=== PATIENT | male | born 1970 | race African-American/Black ===

== ENCOUNTER 2019-03-18 10:07 | Emergency (ER) | payer SELFPAY ==
[~2019-03-18] VITALS: Ht 185.4 cm; Wt 86.2 kg
--- NOTE | 2019-03-18 10:18 | NUR ---
BIB W C/O DIZZINESS AND LIGHTHEADEDNESS SINCE YESTERDAY. TO ER BED 11, HOOKED TO MONITOR, AOx4, BREATHING EVEN AND UNLABORED. PROVIDED W WARM BLANKET, KEPT COMFORTABLE AND SAFE, AWAITING MD SCOTT.
--- NOTE | 2019-03-18 10:25 | NUR ---
AYAH FERNANDEZ AT BEDSIDE
[2019-03-18] MEDS ORDERED: ONDANSETRON HCL/PF 4 MG/2 ML VIAL IVP ONE (10:30)
[2019-03-18] MEDS ORDERED: MECLIZINE HCL 12.5 MG TABLET PO ONE (10:30)
[2019-03-18] MEDS ORDERED: IV NS 0.9% 1,000 ML BAG IV ONE (10:30)
[2019-03-18 10:47] LABS: BASOPHILS % (AUTO) 0.5 % (0.0-2.0); EOSINOPHILS % (AUTO) 0.7 % (0.0-6.0); HEMATOCRIT 49 % (39-51); HEMOGLOBIN 16.3 g/dL (13.5-17.5); LYMPHOCYTES # (AUTO) 1.4 /CMM (0.8-4.8); LYMPHOCYTES % (AUTO) 33.2 % (20.0-44.0); MEAN CORPUSCULAR HGB CONC 33 g/dl (31.0-36.0); MEAN CORPUSCULAR VOLUME 91 fL (80-96); MONOCYTES # (AUTO) 0.5 /CMM (0.1-1.30); MONOCYTES % (AUTO) 10.6 % (2.0-12.0); NEUTROPHILS # (AUTO) 2.4 /CMM (1.8-8.9); PLATELET COUNT (AUTO) 204 /CMM (150-450); RED BLOOD CELL COUNT(AUTO) 5.44 MIL/uL (4.5-6.0); WHITE BLOOD COUNT (AUTO) 4.3 K/uL (4.3-11.0)
[2019-03-18] MEDS ORDERED: MECLIZINE HCL 25 MG TABLET ONE (10:48)
[2019-03-18] MEDS ORDERED: ONDANSETRON HCL/PF 4 MG/2 ML VIAL ONE (10:48)
[2019-03-18 10:54] LABS: CALCIUM, SERUM 9.4 mg/dL (8.5-10.1); CARBON DIOXIDE 31 mmol/L (21-32); CHLORIDE 104 mmol/L (98-107); CREATININE 1.1 mg/dL (0.6-1.3); GLUCOSE 73 mg/dL (74-106); POTASSIUM 4.8 mmol/L (3.5-5.1); SODIUM SERUM 138 mmol/L (136-145); UREA NITROGEN, BLOOD 15 mg/dL (7-18)
--- NOTE | 2019-03-18 10:57 | NUR ---
WHEELED OUT VIA RNEY FOR CT SCAN
[2019-03-18 11:00] LABS: ALANINE AMINOTRANSFERASE 33 U/L (12-78); ALBUMIN 3.7 g/dL (3.4-5.0); ALKALINE PHOSPHATASE 101 U/L (46-116); ASPARTATE AMINOTRANSFERASE 36 U/L (15-37); BILIRUBIN,DIRECT 0.1 mg/dL (0.0-0.2); BILIRUBIN,TOTAL 0.5 mg/dL (0.2-1.0); TOTAL PROTEIN, SERUM 7.6 g/dL (6.4-8.2)
[2019-03-18 12:34] VITALS: BP 146/96
--- NOTE | 2019-03-18 12:34 | NUR ---
IV removed. Catheter intact and site benign. Pressure and 4x4 applied to site. No bleeding noted.Patient discharged to home in stable condition. Written and verbal after care instructions given. Patient verbalizes understanding of instruction.
[2019-03-20] MEDS ORDERED: MECL-102 PO (16:59)
[2019-03-20] MEDS ORDERED: ONDA4TAB5 PO (16:59)
== END 2019-03-18 12:34 | disposition home or self-care (01) ==
LOC: ER 10:14
DX: R42 Dizziness and giddiness (principal); I10 Essential (primary) hypertension
CPT/HCPCS: 36415; 70450; 80048; 80076; 84484; 85025; 96361; 96374; 99284; J2405; J7030; J8597

== ENCOUNTER 2019-03-19 01:56 | Inpatient (IN) | payer SELFPAY ==
[~2019-03-19] VITALS: Ht 185.4 cm; Wt 86.3 kg
--- NOTE | 2019-03-19 02:26 | NUR ---
PT BIB TO ER WITH C/O OF DIZZINESS SINCE 209903/18/19. PATIENT HAS BEEN TO ER EARLIER TODAY FOR THE SAME COMPLAINT, BUT UNRESOLVED. AAOX4. PATIENT DESCRIBES HE "FEELS THE ROOM IS SPINNING". NO SOB. NOT IN ANY DISTRESS. CURRENTLY CONNECTED TO MONITOR.
[2019-03-19] MEDS ORDERED: ONDANSETRON HCL/PF 4 MG/2 ML VIAL IVP ONE (02:30)
[2019-03-19] MEDS ORDERED: IV NS 0.9% 1,000 ML BAG IV ONE (02:30)
--- NOTE | 2019-03-19 02:30 | NUR ---
BLOOD DRAWN AND SENT TO LAB.
[2019-03-19 02:36] LABS: BASOPHILS % (AUTO) 0.3 % (0.0-2.0); EOSINOPHILS % (AUTO) 0.1 % (0.0-6.0); HEMATOCRIT 48 % (39-51); LYMPHOCYTES # (AUTO) 1.8 /CMM (0.8-4.8); MEAN CORPUSCULAR HGB CONC 33 g/dl (31.0-36.0); MEAN CORPUSCULAR VOLUME 91 fL (80-96); MONOCYTES # (AUTO) 0.7 /CMM (0.1-1.30); MONOCYTES % (AUTO) 6.7 % (2.0-12.0); NEUTROPHILS # (AUTO) 7.8 /CMM (1.8-8.9); NEUTROPHILS % (AUTO) 75.9 % (43.0-81.0); PLATELET COUNT (AUTO) 208 /CMM (150-450); RED BLOOD CELL COUNT(AUTO) 5.32 MIL/uL (4.5-6.0); WHITE BLOOD COUNT (AUTO) 10.3 K/uL (4.3-11.0)
[2019-03-19] MEDS ORDERED: ONDANSETRON HCL/PF 4 MG/2 ML VIAL ONE (02:38)
[2019-03-19 02:50] LABS: ALANINE AMINOTRANSFERASE 44 U/L (12-78); ALBUMIN 3.7 g/dL (3.4-5.0); ALKALINE PHOSPHATASE 101 U/L (46-116); ASPARTATE AMINOTRANSFERASE 59 U/L (15-37); BILIRUBIN,DIRECT 0.1 mg/dL (0.0-0.2); BILIRUBIN,TOTAL 0.2 mg/dL (0.2-1.0); CALCIUM, SERUM 8.6 mg/dL (8.5-10.1); CARBON DIOXIDE 22 mmol/L (21-32); CHLORIDE 104 mmol/L (98-107); CREATININE 1.2 mg/dL (0.6-1.3); GLUCOSE 159 mg/dL (74-106); POTASSIUM 3.8 mmol/L (3.5-5.1); SODIUM SERUM 139 mmol/L (136-145); TOTAL PROTEIN, SERUM 7.5 g/dL (6.4-8.2); UREA NITROGEN, BLOOD 13 mg/dL (7-18)
--- NOTE | 2019-03-19 03:27 | NUR ---
[facility] [phone]
--- NOTE | 2019-03-19 03:46 | NUR ---
BED 323-1
--- NOTE | 2019-03-19 03:56 | NUR ---
REPORT GIVEN TO VANESSA SANTACRUZ FOR [facility].
--- NOTE | 2019-03-19 04:20 | NUR ---
TELE/RN NOTES RECEIVED PT. FROM ER VIA [facility]. PT. IS AWAKE, ALERT AND ORIENTED X3. BREATHING EVEN AND UNLABORED ON ROOM AIR. NO SOB, RESPIRATORY DISTRESS OR COMPLAINTS OF PAIN NOTED AT THIS TIME. PT. COMPLAINING OF FEELING DIZZY. ORIENTED PT. TO ROOM. PLACED EXTERNAL SLIP BRIDGE OPERATOR ON PT. CURRENT RHYTHM = SINUS RHYTHM HR 66. PT. WITH RIGHT AC 20 GAUGE IV SALINE LOCK PRESENT, PATENT AND INTACT. PT. REFUSING FULL BODY ASSESSMENT AT THIS TIME AND WANTS TO STAY IN STREET [facility]. BED LOCKED AND IN LOWEST POSITION, SIDE RAILS UP X3. WILL CONTINUE TO MONITOR.
[2019-03-19 04:30] VITALS: BP 145/95
[2019-03-19] MEDS ORDERED: ACETAMINOPHEN 325 MG TABLET PO PRN (04:30)
[2019-03-19] MEDS ORDERED: MAG HYDROX/AL HYDROX/SIMETH 30 ML UDC PO PRN (04:30)
[2019-03-19] MEDS ORDERED: MAGNESIUM HYDROXIDE 30 ML UDC PO PRN (04:30)
[2019-03-19] MEDS ORDERED: Z GUARD REMEDY 2 OZ OINT TP PRN (04:30)
[2019-03-19] MEDS ORDERED: IV NS 0.9% 1,000 ML IV ONE (04:30)
[2019-03-19] MEDS ORDERED: HYDROCODONE/APAP 5/325MG 1 EACH TABLET PO PRN (04:30)
[2019-03-19] MEDS ORDERED: ZOLPIDEM TARTRATE 5 MG TABLET PO PRN (04:30)
--- NOTE | 2019-03-19 06:25 | NUR ---
TELE/RN NOTES PT. IS LYING IN BED RESTING. BREATHING EVEN AND UNLABORED ON ROOM AIR. NO SOB, RESPIRATORY DISTRESS OR COMPLAINTS OF PAIN NOTED AT THIS TIME. PT. STATED THE DIZZY FEELING IS GOING AWAY AND GETTING BETTER. PT. WITH EXTERNAL COMPOUNDING TECHNICIAN PRESENT AND INTACT. PT. CURRENT RHYTHM = SINUS RHYTHM HR 83. PT. WITH RIGHT AC 20 GAUGE PERIPHERAL IV PRESENT, PATENT AND INTACT ADMINISTERING TO PT. NS @ 75 ML/HR. ALL PT. NEEDS MET. BED LOCKED AND IN LOWEST POSITION, SIDE RAILS UP X3. WILL ENDORSE TO DAYSHIFT NURSE FOR CONTINUITY OF CARE.
[2019-03-19] MEDS: ONDANSETRON HCL/PF 4 MG/2 ML VIAL IVP PRN ×2 (06:59→13:18)
--- NOTE | 2019-03-19 07:20 | NUR ---
BANKRUPTCY LEGAL ASSISTANT NOTES PATIENT IN BED ALERT ORIENTED X 3. NO ACUTE DISTRESS UNLABORED. BREATHING UNLABORED. IV ACCESS PATENT AND INTACT. NO REDNESS OR SWELLING NOTED. HOB ELEVATED. SAFETY MEASURES IN PLACE. CALLL LIGHT WITHIN REACH. WILL CONTINUE TO MONITOR ACCORDINGLY.
[2019-03-19 08:00] VITALS: BP 142/90
[2019-03-19 12:00] VITALS: BP 147/82
[2019-03-19] MEDS: MECLIZINE HCL 25 MG TABLET PO SCH ×2 (13:37→20:21)
[2019-03-19 16:00] VITALS: BP 146/100
[2019-03-19] MEDS: DIAZEPAM 5 MG TABLET PO PRN (17:51)
--- NOTE | 2019-03-19 19:05 | NUR ---
RN MS OPENING NOTES RECEIVED PATIENT IN BED AWAKE ALERT AND ORIENTED X4, RESPIRATIONS EVEN AND UNLABORED WITH EQUAL RISE AND FALL OF CHEST, AT THIS TIME DENIES ANY PAIN OR DISCOMFORT, NO NAUSEA OR VOMITING PRESENT AT THIS TIME, IV SITE TO RIGHT AC #20 INTACT AND PATENT NO REDNESS, NO INFILTRATION PRESENT,ORIENTED TO STAFF AND CALL LIGHT AND KEPT WITHIN, DISCUSSED PLAN OF CARE, SAFETY PRECAUTIONS IN PLACE, LOW BED AND LOCKED, ALL NEEDS ATTENDED AT THIS TIME, WILL CONTINUE TO MONITOR AND ATTEND TO NEEDS.
--- NOTE | 2019-03-19 19:10 | NUR ---
MS RN NOTES PATIENT IN BED ALERT ORIENTED X 3. NO ACUTE DISTRESS NOTED. BREATHING UNLABORED. IV ACCESS PATENT AND INTACT. NO REDNESS OR SWELLING NOTED. HOB ELEVATED. NEEDS ATTENDED AND ANTICIPATED. KEPT CLEAN DRY AND COMFORTABLE. SAFETY MEASURES IN PLACE. CALL LIGHT WITHIN REACH. WILL ENDORSE TO NIGHT NURSE FOR CONTINUITY OF CARE.
[2019-03-19 20:00] VITALS: BP 148/98
[2019-03-20] MEDS: MECLIZINE HCL 25 MG TABLET PO SCH ×2 (04:29→12:07)
[2019-03-20 06:38] LABS: BASOPHILS % (AUTO) 0.2 % (0.0-2.0); EOSINOPHILS % (AUTO) 0.1 % (0.0-6.0); HEMATOCRIT 50 % (39-51); HEMOGLOBIN 16.3 g/dL (13.5-17.5); LYMPHOCYTES # (AUTO) 1.6 /CMM (0.8-4.8); LYMPHOCYTES % (AUTO) 16.2 % (20.0-44.0); MEAN CORPUSCULAR HGB CONC 33 g/dl (31.0-36.0); MEAN CORPUSCULAR VOLUME 91 fL (80-96); MONOCYTES # (AUTO) 0.8 /CMM (0.1-1.30); MONOCYTES % (AUTO) 8.4 % (2.0-12.0); NEUTROPHILS # (AUTO) 7.3 /CMM (1.8-8.9); NEUTROPHILS % (AUTO) 75.1 % (43.0-81.0); PLATELET COUNT (AUTO) 190 /CMM (150-450); RED BLOOD CELL COUNT(AUTO) 5.48 MIL/uL (4.5-6.0); WHITE BLOOD COUNT (AUTO) 9.7 K/uL (4.3-11.0)
--- NOTE | 2019-03-20 06:41 | NUR ---
RN MS CLOSING NOTES PATIENT IN BED SLEEPING BUT EASILY AROUSABLE, AWAKE ALERT AND ORIENTED X4, RESPIRATIONS EVEN AND UNLABORED WITH EQUAL RISE AND FALL OF CHEST, AT THIS TIME DENIES ANY PAIN OR DISCOMFORT, NO NAUSEA OR VOMITING PRESENT AT THIS TIME OR THROUGHOUT THE SHIFT, IV SITE TO RIGHT AC #20 INTACT AND PATENT NO REDNESS, NO INFILTRATION PRESENT, CALL LIGHT KEPT WITHIN, SAFETY PRECAUTIONS IN PLACE, LOW BED AND LOCKED, ALL NEEDS ATTENDED AT THIS TIME, WILL CONTINUE TO MONITOR AND ATTEND TO NEEDS AND ENDORSE TO NEXT SHIFT, URINAL KEPT AT BEDSIDE, DUE MEDS GIVEN WITH NO ADVERSE REACTIONS PRESENT. REMAINS COMFORTABLE AT THIS TIME.
[2019-03-20 07:45] LABS: CALCIUM, SERUM 9.3 mg/dL (8.5-10.1); CREATININE 1.1 mg/dL (0.6-1.3); MAGNESIUM 1.9 mg/dL (1.8-2.4); PHOSPHORUS 2.9 mg/dL (2.5-4.9); POTASSIUM 3.7 mmol/L (3.5-5.1)
[2019-03-20 08:00] VITALS: BP_SYST 139; BP_SYST 173; BP_DIAS 86; BP_DIAS 88; BP_DIAS 98
[2019-03-20] MEDS: DIAZEPAM 5 MG TABLET PO PRN (08:30)
--- NOTE | 2019-03-20 08:35 | NUR ---
MS RN NOTES RECEIVED PATIENT IN BED, AWAKE ALERT AND ORIENTED X 4. SHOWS EVEN AND UNLABORED RESPIRATION. DENIES PAIN AND SHOWS NO ACUTE DISTRESS. IV SITE IS ON RAC #20 SALINE LOCK AND IS CLEAN, DRY AND INTACT. SHOWS NO SIGNS OF INFILTRATION, NO REDNESS. SAFETY PRECAUTIONS IN PLACE. BED IN LOWEST POSITION, LOCKED, AND CALL LIGHT KEPT WITHIN REACH. WILL CONTINUE TO MONITOR.
--- NOTE | 2019-03-20 08:47 | NUR ---
MS RN NOTES PATIENT COMPLAINS FOR DIZZINESS. GAVE VALIUM ACCORDING FROM eMAR.
[2019-03-20] MEDS: ONDANSETRON HCL/PF 4 MG/2 ML VIAL IVP PRN (12:07)
[2019-03-20 15:57] VITALS: BP 162/101
[2019-03-20] MEDS ORDERED: MECL-102 PO (16:59)
[2019-03-20] MEDS ORDERED: ONDA4TAB5 PO (16:59)
--- NOTE | 2019-03-20 18:16 | NUR ---
MS SUPERVISORY FORESTER NOTES PATIENT IS MEDICALLY STABLE. DENIES PAIN, NO SIGNS OF ACUTE DISTRESS. WITH EVEN AND UNLABORED RESPIRATIONS. IV SHOWS NO SIGNS OF INFILTRATION AND NO REDNESS. IV TAKEN OUT WITH CATHETER INTACT. ID BAND REMOVED. PATIENT STATED UNDERSTANDING OF DISCHARGE INSTRUCTIONS. PATIENT LEFT IN PRIVATE VEHICLE WITH DAUGHTER. NO NEW SKIN BREAKDOWNS. NO MISSING BELONGINGS. DOCTOR AWARE OF DISCHARGE.
== END 2019-03-20 18:20 | disposition home or self-care (01) | DRG 149 ==
LOC: ER 01:57 → TELE 03:47 → MED 12:59
PROVIDERS: ADMIT Nurse Practitioner Acute Care; ATTEND Nurse Practitioner Acute Care
DX: H81.10 Benign paroxysmal vertigo, unspecified ear (principal); F12.90 Cannabis use, unspecified, uncomplicated; I10 Essential (primary) hypertension; R73.9 Hyperglycemia, unspecified; F43.9 Reaction to severe stress, unspecified; H55.09 Other forms of nystagmus
CPT/HCPCS: 36415; 80048-TC; 80061-TC; 80076-TC; 83735-TC; 84100-TC; 84484-TC; 85025-TC; 87081-TC; 93307-TC; 93880-TC; G0378; J2405; J7030; J8597